=== PATIENT | female | born 1990 | race Caucasian/White ===

== ENCOUNTER 2016-05-11 03:34 | Emergency (ER) | payer MEDICAID ==
--- NOTE | 2016-05-11 04:05 | EDDOCDS ---
Nurse's Notes [facility] Name: Mildred Sotomayor Age: 25 yrs Sex: Female : 1990 Arrival Date: 05/11/2016 Time: 03:34 Bed 2 Private MD: Diagnosis: Alcohol abuse with intoxication Presentation: 05/11 03:42 Presenting complaint: EMS states: Pt was running away from police and call came over as ko2 seizure like activity. Pt states that she did three bags of heroin as well as 6 beers and some shots. Pt states that she "felt like she was in a dream". Suicide/Homicide risk assessment- the patient denies having any suicidal and/or homicidal ideations and does not present with any other emotional, behavioral or mental health complaints. Status: Patient is not a legal services professional or dependent. Transition of care: patient was not received from another setting of care. Care prior to arrival: See EMS report. Glucose check. 116. 03:42 Acuity: ANSHU Level 2 ko2 03:42 Method Of Arrival: Ambulance ko2 03:48 Adult Sepsis Screening: The patient does not have new or worsening altered mentation. ko2 Patient's respiratory rate is less than 22. Systolic blood pressure is greater than 100. Patient has a qSOFA score of 0- Negative Sepsis Screen. Triage Assessment: 03:46 General: Appears distressed, Behavior is cooperative, crying. Pain: Denies pain. Pt ko2 Declines HIV testing. The patient is triaged at the bedside. See Assessment in Nurses Notes section of ED record. Neurological: Level of Consciousness is awake, alert. Cardiovascular: Rhythm is sinus tachycardia No ectopy. Respiratory: Airway is patent Respiratory effort is even, unlabored. GI: Bowel sounds present X 4 quads. Derm: Skin is normal. Musculoskeletal: Range of motion intact in all extremities. 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 none - PMHx: none; - PSHx: none; - Social history: Smoking status: Patient uses tobacco products, current every day smoker. Patient uses alcohol street drugs, heroin, No barriers to communication noted, The patient speaks fluent Greenlandic, Speaks appropriately for age. - Family history: Not pertinent. - : The pt / caregiver states he / she is not on anticoagulants. Home medication list is obtained from the patient. - Exposure Risk Screening:: None identified. Screenin:48 Screening information is obtained from the patient. Fall risk: No risks identified. ko2 Assistance ADL's: requires no assistance with activities of daily living. Abuse/DV Screen: The patient / caregiver reports he/she is: not in a situation that causes fear, pain or injury. Nutritional screening: No deficits noted. Advance Directives: Currently, there is no health care proxy. There is no active DNR order. There is no living will. There is no Power of Laundromat Manager. home support is adequate. Assessment: 03:47 General: See triage assessment. ko2 04:03 General: Appears in no apparent distress, Behavior is cooperative. Neurological: Level mlc of Consciousness is awake, obeys commands, Oriented to person, place, time. Respiratory: Airway is patent Respiratory effort is even, unlabored, Respiratory pattern is regular. Vital Signs: 03:43 BP 136 / 78; Pulse 168; Resp 20; Temp 98.6(TE); Pulse Ox 96% on R/A; Weight 61.23 kg mdr (R); Height 5 ft. 2 in. (157.48 cm); Pain 0/10; 03:43 Body Mass Index 24.69 (61.23 kg, 157.48 cm) mdr Vitals: 03:48 Log In Time N/A - ambulance arrival. ko2 ED Course: 03:35 Patient visited by Jalen Joy PCA. kb5 03:35 Yamilex Valdivia,RN is Primary Nurse. kb5 03:35 Patient moved to Waiting kb5 03:35 Patient moved to 2 kb5 03:37 Donn Chen DO is Attending Physician. cs11 03:37 Patient visited by Donn Chen DO. cs11 03:45 Patient visited by Williams Billy PCA. mdr 03:45 Triage Initiated ko2 04:03 The patient / caregiver is instructed regarding the plan of care and ED course. mlc 04:03 No IV's were initiated during this patient's visit. No procedures done that require mlc assistance. Order Results: There are currently no results for this order. Outcome: 04:00 Discharge ordered by Provider. cs11 04:03 Discharge Assessment: patient administered narcotics - no. The following High Risk mlc Discharge criteria are identified: None. Discharged to home ambulatory. Condition: stable. Discharge instructions given to patient, Instructed on discharge instructions, Demonstrated understanding of instructions, Pt was receptive of discharge instructions/ teaching. No special radiology studies were completed. Property sent home with patient. 04:04 Patient left the ED. [facility] [place] Signatures: Jalen Joy, PUBLIC HEALTH TECHNICIAN PUBLIC HEALTH TECHNICIAN kb5 Donn Chen, DO cs11 Amy Rojas RN RN [facility] [place] Yamilex Valdivia RN RN ko2 Williams Billy, PUBLIC HEALTH TECHNICIAN PUBLIC HEALTH TECHNICIAN mdr MTDD
--- NOTE | 2016-05-11 04:05 | EDDOCDS ---
Physician Documentation [facility] Name: Mildred Sotomayor Age: 25 yrs Sex: Female : 1990 Arrival Date: 05/11/2016 Time: 03:34 Bed 2 Private MD: Disposition: 05/11/16 04:00 Discharged to Home/Self Care. Impression: Alcohol abuse with intoxication. - Condition is Stable. - Medication Reconciliation, Local Pharmacy Hours form. - Follow up: Private Physician; When: Call to arrange an appointment; Reason: Recheck today's complaints. - Problem is chronic. - Symptoms are unchanged. Historical: - Allergies: No known drug Allergies; - Home Meds: 1. none - PMHx: none; - PSHx: none; - Social history: Smoking status: Patient uses tobacco products, current every day smoker. Patient uses alcohol street drugs, heroin, No barriers to communication noted, The patient speaks fluent Austrian, Speaks appropriately for age. - Family history: Not pertinent. - : The pt / caregiver states he / she is not on anticoagulants. Home medication list is obtained from the patient. - Exposure Risk Screening:: None identified. 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 2 in. (157.48 cm); Pain 0/10; 03:43 Body Mass Index 24.69 (61.23 kg, 157.48 cm) mdr MDM: 03:41 Consult PFS/PSA/Upper Leather Cutter ordered. cs11 03:41 Consult PFS/PSA/Upper Leather Cutter: Patient's case requires discussion with on-call cs11 Psychiatrist ordered. 03:41 PSA/PFS to call Nursing Cash Accounting Clerk, to enter patient data on [place] if patient cs11 involuntarily admitted or transferred for SI or HI ordered. 03:41 Confirm accurate psychiatric medication list and times of last dosage ordered. cs11 03:41 Detain Pt Until Medically/PFS Cleared ordered. cs11 03:42 Acetaminophen Level Ordered. EDMS 03:42 Basic Metabolic Profile Ordered. EDMS 03:42 Complete Blood Count Ordered. EDMS 03:42 Drug Eval Toxicology ED Only Ordered. EDMS 03:42 Ethyl Alcohol (ethanol) Ordered. EDMS 03:42 HCG,Serum Qualitative Ordered. EDMS 03:42 Liver Profile Ordered. EDMS 03:42 Salicylate Level Ordered. EDMS 03:42 Thyroid Stimulating Hormone Ordered. EDMS Signatures: Dispatcher [employer] EDMS Donn Chen DO DO cs11 Amy RojasRN RN mlc Yamilex Valdivia RN RN ko2 MTDD
--- NOTE | 2016-05-13 05:05 | EDDOCDS ---
Physician Documentation [facility] Name: Mildred Sotomayor Age: 25 yrs Sex: Female : 1990 Arrival Date: 05/11/2016 Time: 03:34 Bed 2 Private MD: Disposition: 05/11/16 04:00 Discharged to Home/Self Care. Impression: Alcohol abuse with intoxication. - Condition is Stable. - Medication Reconciliation, Local Pharmacy Hours form. - Follow up: Private Physician; When: Call to arrange an appointment; Reason: Recheck today's complaints. - Problem is chronic. - Symptoms are unchanged. Historical: - Allergies: No known drug Allergies; - Home Meds: 1. none - PMHx: none; - PSHx: none; - Social history: Smoking status: Patient uses tobacco products, current every day smoker. Patient uses alcohol street drugs, heroin, No barriers to communication noted, The patient speaks fluent Bangladeshi, Speaks appropriately for age. - Family history: Not pertinent. - : The pt / caregiver states he / she is not on anticoagulants. Home medication list is obtained from the patient. - Exposure Risk Screening:: None identified. KEG FILLER: 05/11 03:48 LMP 08/2015 ko2 Vital Signs: 03:43 BP 136 / 78; Pulse 168; Resp 20; Temp 98.6(TE); Pulse Ox 96% on R/A; Weight 61.23 kg / mdr 134.99 lbs (R); Height 5 ft. 2 in. (157.48 cm); Pain 0/10; 03:43 Body Mass Index 24.69 (61.23 kg, 157.48 cm) mdr MDM: 03:41 Consult PFS/PSA/Finished Goods Stock Clerk ordered. cs11 03:41 Consult PFS/PSA/Finished Goods Stock Clerk: Patient's case requires discussion with on-call cs11 Psychiatrist ordered. 03:41 PSA/PFS to call Nursing Auto Headlight Mechanic, to enter patient data on [place] if patient cs11 involuntarily admitted or transferred for SI or HI ordered. 03:41 Confirm accurate psychiatric medication list and times of last dosage ordered. cs11 03:41 Detain Pt Until Medically/PFS Cleared ordered. cs11 03:42 Acetaminophen Level Ordered. EDMS 03:42 Basic Metabolic Profile Ordered. EDMS 03:42 Complete Blood Count Ordered. EDMS 03:42 Drug Eval Toxicology ED Only Ordered. EDMS 03:42 Ethyl Alcohol (ethanol) Ordered. EDMS 03:42 HCG,Serum Qualitative Ordered. EDMS 03:42 Liver Profile Ordered. EDMS 03:42 Salicylate Level Ordered. EDMS 03:42 Thyroid Stimulating Hormone Ordered. EDMS 21:06 T-Sheet-- Draft Copy was scanned into [employer] and attached to record. klr Signatures: Dispatcher [employer] EDMS Donn Chen DO DO cs11 Amy Rojas RN RN [facility] [place] Yamilex Valdivia RN RN ko2 Jody Riggs klr The chart was reviewed and I authenticate all verbal orders and agree with the evaluation and treatment provided.Attachments: 21:06 T-Sheet-- Draft Copy klr Chart Complete MTDD
--- NOTE | 2016-05-13 05:06 | EDDOCDS ---
Physician Documentation [facility] Name: Mildred Sotomayor Age: 25 yrs Sex: Female : 1990 Arrival Date: 05/11/2016 Time: 03:34 Bed 2 Private MD: Disposition: 05/11/16 04:00 Discharged to Home/Self Care. Impression: Alcohol abuse with intoxication. - Condition is Stable. - Medication Reconciliation, Local Pharmacy Hours form. - Follow up: Private Physician; When: Call to arrange an appointment; Reason: Recheck today's complaints. - Problem is chronic. - Symptoms are unchanged. Historical: - Allergies: No known drug Allergies; - Home Meds: 1. none - PMHx: none; - PSHx: none; - Social history: Smoking status: Patient uses tobacco products, current every day smoker. Patient uses alcohol street drugs, heroin, No barriers to communication noted, The patient speaks fluent Chadian, Speaks appropriately for age. - Family history: Not pertinent. - : The pt / caregiver states he / she is not on anticoagulants. Home medication list is obtained from the patient. - Exposure Risk Screening:: None identified. 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 2 in. (157.48 cm); Pain 0/10; 03:43 Body Mass Index 24.69 (61.23 kg, 157.48 cm) mdr MDM: 03:41 Consult PFS/PSA/Clinical Laboratory Manager ordered. cs11 03:41 Consult PFS/PSA/Clinical Laboratory Manager: Patient's case requires discussion with on-call cs11 Psychiatrist ordered. 03:41 PSA/PFS to call Nursing Fitness And Wellness Manager, to enter patient data [place] if patient cs11 involuntarily admitted or transferred for SI or HI ordered. 03:41 Confirm accurate psychiatric medication list and times of last dosage ordered. cs11 03:41 Detain Pt Until Medically/PFS Cleared ordered. cs11 03:42 Acetaminophen Level Ordered. EDMS 03:42 Basic Metabolic Profile Ordered. EDMS 03:42 Complete Blood Count Ordered. EDMS 03:42 Drug Eval Toxicology ED Only Ordered. EDMS 03:42 Ethyl Alcohol (ethanol) Ordered. EDMS 03:42 HCG,Serum Qualitative Ordered. EDMS 03:42 Liver Profile Ordered. EDMS 03:42 Salicylate Level Ordered. EDMS 03:42 Thyroid Stimulating Hormone Ordered. EDMS 21:06 T-Sheet-- Draft Copy was scanned into [employer] and attached to record. klr Signatures: Dispatcher [employer] EDMS Donn Chen DO DO cs11 Amy Rojas RN RN [facility] Yamilex Valdivia RN RN ko2 Jody Riggs klr The chart was reviewed and I authenticate all verbal orders and agree with the evaluation and treatment provided.Attachments: 21:06 T-Sheet-- Draft Copy klr Chart Complete MTDD
--- NOTE | 2016-05-13 05:06 | EDDOCDS ---
Nurse's Notes [facility] Name: Mildred Sotomayor Age: 25 yrs Sex: Female : 1990 Arrival Date: 05/11/2016 Time: 03:34 Bed 2 Private MD: Diagnosis: Alcohol abuse with intoxication Presentation: 05/11 03:42 Presenting complaint: EMS states: Pt was running away from police and call came over as ko2 seizure like activity. Pt states that she did three bags of heroin as well as 6 beers and some shots. Pt states that she "felt like she was in a dream". Suicide/Homicide risk assessment- the patient denies having any suicidal and/or homicidal ideations and does not present with any other emotional, behavioral or mental health complaints. Status: Patient is not a coordinator volunteer services or dependent. Transition of care: patient was not received from another setting of care. Care prior to arrival: See EMS report. Glucose check. 116. 03:42 Acuity: ANSHU Level 2 ko2 03:42 Method Of Arrival: Ambulance ko2 03:48 Adult Sepsis Screening: The patient does not have new or worsening altered mentation. ko2 Patient's respiratory rate is less than 22. Systolic blood pressure is greater than 100. Patient has a qSOFA score of 0- Negative Sepsis Screen. Triage Assessment: 03:46 General: Appears distressed, Behavior is cooperative, crying. Pain: Denies pain. Pt ko2 Declines HIV testing. The patient is triaged at the bedside. See Assessment in Nurses Notes section of ED record. Neurological: Level of Consciousness is awake, alert. Cardiovascular: Rhythm is sinus tachycardia No ectopy. Respiratory: Airway is patent Respiratory effort is even, unlabored. GI: Bowel sounds present X 4 quads. Derm: Skin is normal. Musculoskeletal: Range of motion intact in all extremities. 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 none - PMHx: none; - PSHx: none; - Social history: Smoking status: Patient uses tobacco products, current every day smoker. Patient uses alcohol street drugs, heroin, No barriers to communication noted, The patient speaks fluent Micronesian, Speaks appropriately for age. - Family history: Not pertinent. - : The pt / caregiver states he / she is not on anticoagulants. Home medication list is obtained from the patient. - Exposure Risk Screening:: None identified. Screenin:48 Screening information is obtained from the patient. Fall risk: No risks identified. ko2 Assistance ADL's: requires no assistance with activities of daily living. Abuse/DV Screen: The patient / caregiver reports he/she is: not in a situation that causes fear, pain or injury. Nutritional screening: No deficits noted. Advance Directives: Currently, there is no health care proxy. There is no active DNR order. There is no living will. There is no Power of Paper Machine Tender. home support is adequate. Assessment: 03:47 General: See triage assessment. ko2 04:03 General: Appears in no apparent distress, Behavior is cooperative. Neurological: Level mlc of Consciousness is awake, obeys commands, Oriented to person, place, time. Respiratory: Airway is patent Respiratory effort is even, unlabored, Respiratory pattern is regular. Vital Signs: 03:43 BP 136 / 78; Pulse 168; Resp 20; Temp 98.6(TE); Pulse Ox 96% on R/A; Weight 61.23 kg mdr (R); Height 5 ft. 2 in. (157.48 cm); Pain 0/10; 03:43 Body Mass Index 24.69 (61.23 kg, 157.48 cm) mdr Vitals: 03:48 Log In Time N/A - ambulance arrival. ko2 ED Course: 03:35 Patient visited by Jalen Joy PCA. kb5 03:35 Yamilex Valdivia,RN is Primary Nurse. kb5 03:35 Patient moved to Waiting kb5 03:35 Patient moved to 2 kb5 03:37 Donn Chen DO is Attending Physician. cs11 03:37 Patient visited by Donn Chen DO. cs11 03:45 Patient visited by Williams Billy PCA. mdr 03:45 Triage Initiated ko2 04:03 The patient / caregiver is instructed regarding the plan of care and ED course. mlc 04:03 No IV's were initiated during this patient's visit. No procedures done that require mlc assistance. 21:06 T-Sheet-- Draft Copy was scanned into [employer] and attached to record. klr Order Results: There are currently no results for this order. Outcome: 04:00 Discharge ordered by Provider. cs11 04:03 Discharge Assessment: patient administered narcotics - no. The following High Risk [facility] [place]charge criteria are identified: None. Discharged to home ambulatory. Condition: stable. Discharge instructions given to patient, Instructed on discharge instructions, Demonstrated understanding of instructions, Pt was receptive of discharge instructions/ teaching. No special radiology studies were completed. Property sent home with patient. 04:04 Patient left the ED. [facility] Signatures: Jalen Joy, BUTTON TUFTER BUTTON TUFTER kb5 Donn Chen, DO cs11 Amy Rojas RN RN [facility] Yamilex Valdivia RN RN ko2 Williams Billy, BUTTON TUFTER BUTTON TUFTER Jody Jalloh Chart Complete MTDD
== END 2016-05-11 04:04 | disposition home or self-care (01) ==
LOC: M ED 03:34
DX: F10.120 Alcohol abuse with intoxication, uncomplicated (principal); F11.20 Opioid dependence, uncomplicated; F17.210 Nicotine dependence, cigarettes, uncomplicated